=== PATIENT | female | born 1975 | race Caucasian/White ===

== ENCOUNTER → 2018-01-24 | Outpatient (CLI) | payer OTHER | LOC: FIMAGING 13:33 | PROVIDERS: ATTEND Obstetrics & Gynecology | DX: Z12.31 Encounter for screening mammogram for malignant neoplasm of breast (principal) ==

== ENCOUNTER 2018-12-26 23:34 | Emergency (ER) | payer OTHER ==
--- NOTE | 2018-12-27 01:17 | EDPHY ---
H & P Stated Complaint: mid to R CP since 1200, SOB/lightheaded/N Time Seen by Provider: 12/27/18 00:09 HPI/ROS: HPI The patient presents with chest pain, which is a right-sided pressure-like sensation which she began to notice at about noon today while at rest. The pain persisted for several hours. Since she has arrived in the emergency department, the pain is improved somewhat. It began to become associated with nausea, shortness of breath, lightheadedness. She did have an episode of vomiting with this. The pain was slightly worse with a deep breath. She has had about 3 or 4 similar episodes over the last 1.5 months, however does have been much shorter in duration than this episode. She does report she is undergoing large amount of stress in her life, going through a divorce, problems with her living situation. REVIEW OF SYSTEMS 10 systems were reviewed and negative with the exception of the elements mentioned in the history of present illness. PMHx: Healthy, anemia during Soc Hx: Nonsmoker FHx: Father with type 2 diabetes, mom with history of stroke PHYSICAL General Appearance: Alert, no distress Eyes: Pupils equal and round no pallor or injection ENT, Mouth: Mucous membranes moist Respiratory: There are no retractions, lungs are clear to auscultation Cardiovascular: Regular rate and rhythm Chest wall: There is no tenderness Gastrointestinal: Abdomen is soft and non-tender, no masses, bowel sounds normal Neurological: A&O, moves all extremities Skin: Warm and dry, no rashes Musculoskeletal: Neck is supple non tender Extremities: symmetrical, full range of motion Psychiatric: Patient is oriented X 3, there is no agitation Source: Patient Exam Limitations: No limitations - Personal History LMP (Females 10-55): 1-7 Days Ago Current Tetanus/Diphtheria Vaccine: Yes - Medical/Surgical History Hx Asthma: No Hx Chronic Respiratory Disease: No Hx Diabetes: No Hx Cardiac Disease: No Hx Renal Disease: No Hx Cirrhosis: No Hx Alcoholism: No Hx HIV/AIDS: No Hx Splenectomy or Spleen Trauma: No Other PMH: denies - Social History Smoking Status: Never smoked Constitutional: Initial Vital Signs Temperature (C) 36.8 C 12/26/18 23:35 Heart Rate 95 12/26/18 23:35 Respiratory Rate 16 12/26/18 23:35 Blood Pressure 114/73 12/26/18 23:35 O2 Sat (%) 99 12/26/18 23:35 O2 Delivery Mode Room Air Allergies/Adverse Reactions: No Known Allergies Allergy (Unverified 12/26/18 23:38) Home Medications: Medication Instructions Recorded Bcp 12/26/18 Medical Decision Making - Diagnostics Imaging Results: Chest x-ray two views is unremarkable, interpreted by me, radiology interpretation is pending. CT a chest is unremarkable, interpreted by direct Radiology. Imaging: I viewed and interpreted images myself Differential Diagnosis: 43-year-old female who is healthy presents with intermittent chest pain over the last 1.5 months, worse today. Here, vital signs normal, generally well-appearing. EKG unremarkable. Chest x-ray was also normal. Basic labs including troponin were normal. D- dimer was positive. Because of this I discussed CT scan with her and she would like to proceed. This is ultimately unremarkable as well. I suspect her symptoms are related to anxiety versus GERD and I have discussed this with her. She will be discharged from the emergency department with her friend. - Data Points Laboratory Results: Laboratory Results 12/27/18 00:00 12/27/18 00:00 12/27/18 12/27/18 12/27/18 00:05 00:00 00:00 WBC RBC Hgb Hct MCV MCH MCHC RDW Plt Count MPV Neut % (Auto) Lymph % (Auto) [place] % (Auto) Eos % (Auto) Baso % (Auto) Nucleat RBC Rel Count Absolute Neuts (auto) Absolute Lymphs (auto) Absolute Monos (auto) Absolute Eos (auto) Absolute Basos (auto) Absolute Nucleated RBC Immature Gran % Immature Gran # RBC/WBC/PLT Morphology Platelet Estimate D-Dimer 0.71 ug/mLFEU H ug/mLFEU (0.00-0.50) Sodium 138 mEq/L mEq/L (135-145) Potassium 4.0 mEq/L mEq/L (3.5-5.2) Chloride 105 mEq/L mEq/L (97-110) Carbon Dioxide 23 mEq/l mEq/l (22-31) Anion Gap 10 mEq/L mEq/L (6-14) BUN 14 mg/dL mg/dL (7-23) Creatinine 0.9 mg/dL mg/dL (0.6-1.0) Estimated GFR > 60 Glucose 103 mg/dL H mg/dL (70-100) Calcium 9.4 mg/dL mg/dL (8.5-10.4) POC Troponin I 0.01 ng/mL ng/mL (0.00-0.08) 12/27/18 00:00 WBC 9.07 10^3/uL 10^3/uL (3.80-9.50) RBC 4.71 10^6/uL 10^6/uL (4.18-5.33) Hgb 14.6 g/dL g/dL (12.6-16.3) Hct 43.0 % % (38.0-47.0) MCV 91.3 fL fL (81.5-99.8) MCH 31.0 pg pg (27.9-34.1) MCHC 34.0 g/dL g/dL (32.4-36.7) RDW 11.8 % % (11.5-15.2) Plt Count 235 10^3/uL 10^3/uL (150-400) MPV 11.0 fL fL (8.7-11.7) Neut % (Auto) 89.9 % H % (39.3-74.2) Lymph % (Auto) 4.9 % L % (15.0-45.0) [place] % (Auto) 3.5 % L % (4.5-13.0) Eos % (Auto) 1.3 % % (0.6-7.6) Baso % (Auto) 0.2 % L % (0.3-1.7) Nucleat RBC Rel Count 0.0 % % (0.0-0.2) Absolute Neuts (auto) 8.15 10^3/uL H 10^3/uL (1.70-6.50) Absolute Lymphs (auto) 0.44 10^3/uL L 10^3/uL (1.00-3.00) Absolute Monos (auto) 0.32 10^3/uL 10^3/uL (0.30-0.80) Absolute Eos (auto) 0.12 10^3/uL 10^3/uL (0.03-0.40) Absolute Basos (auto) 0.02 10^3/uL 10^3/uL (0.02-0.10) Absolute Nucleated RBC 0.00 10^3/uL 10^3/uL (0-0.01) Immature Gran % 0.2 % % (0.0-1.1) Immature Gran # 0.02 10^3/uL 10^3/uL (0.00-0.10) RBC/WBC/PLT Morphology TNP Platelet Estimate TNP D-Dimer Sodium Potassium Chloride Carbon Dioxide Anion Gap BUN Creatinine Estimated GFR Glucose Calcium POC Troponin I Point of Care Test Results: Chemistry 12/27/18 00:05 POC Troponin I 0.01 ng/mL ng/mL (0.00-0.08) Departure - Departure Disposition: Home, Routine, Self-Care Clinical Impression: Chest pain Qualifiers: Chest pain type: unspecified Qualified Code(s): R07.9 - Chest pain, unspecified Condition: Good Instructions: Chest Pain (ED) Additional Instructions: Please return if your worse in any way. Your chest pain does not appear to be caused by a heart attack, blood clot to the lungs, collapsed lung or pneumonia. It could be related to stress. Referrals: Arlene Bradford MD [Medical Doctor] - As per Instructions
[2018-12-27 01:22] LABS: PLATELET COUNT 235 10^3/uL (150-400)
[2018-12-27] MEDS ORDERED: IOPAMIDOL (ISOVUE 370) 100 ML BTL IV ONE (01:58)
[2018-12-27 02:54] VITALS: BP 100/60
--- NOTE | 2018-12-28 06:20 | CPEKG ---
Test Reason : OPEN Blood Pressure : / mmHG Vent. Rate : 080 BPM Atrial Rate : 079 BPM P-R Int : 149 ms QRS Dur : 081 ms QT Int : 363 ms P-R-T Axes : 080 067 056 degrees QTc Int : 419 ms Sinus rhythm Confirmed by Grace Duran ([id number]) on 12/28/2018 6:20:22 AM Referred By: PHYSICIAN ED Confirmed By:Grace Duran
== END 2018-12-27 02:53 | disposition home or self-care (01) ==
DX: R07.9 Chest pain, unspecified (principal); R79.89 Other specified abnormal findings of blood chemistry; R91.1 Solitary pulmonary nodule
CPT/HCPCS: 84484-ER; Q9967

== ENCOUNTER → 2019-03-24 | Outpatient (CLI) | payer OTHER | LOC: FIMAGING 13:22 ==

== ENCOUNTER → 2019-04-09 | Outpatient (CLI) | payer OTHER | LOC: FIMAGING 12:23 ==